=== PATIENT | male | born 1965 | race Caucasian/White ===

== ENCOUNTER 2016-04-30 04:21 | Emergency (ER) | payer OTHER ==
[~2016-04-30 04:21] MED LIST: DILANTIN100 MG; INDERAL LA80 MG; NEU300 PO; OMEPRAZOLE DR20 M1; ZANTAC 150150 MG
[2016-04-30 05:10] VITALS: BP 139/88
== END 2016-04-30 05:10 | disposition other institution (70) ==
LOC: ED 04:21
DX: Z02.89 Encounter for other administrative examinations (principal); Z91.19 Patient's noncompliance with other medical treatment and regimen; I10 Essential (primary) hypertension

== ENCOUNTER 2016-04-30 04:21 | Emergency (ER) | payer OTHER | END 2016-04-30 05:10 | disposition other institution (70) | LOC: ED 04:21 | DX: Z02.89 Encounter for other administrative examinations (principal) ==